=== PATIENT | male | born 1975 | race African-American/Black ===

== ENCOUNTER 2016-11-29 13:14 | Day surgery (SDC) | payer OTHER ==
[~2016-11-29] VITALS: Ht 195.6 cm; Wt 134.7 kg
[~2016-11-29 13:14] MED LIST: APRESOLINE100 MG PO; ASPIRIN81 M2 PO; CELLCEPT500 MG PO; COREG25 M1 PO; ERGOCALCIF50000 UNIT PO; FLOMAX0.4 MG PO; LASIX40 MG PO; LEVEMIR FL100 UNIT/1 SC; LIPITOR20 MG PO; METOPROLOL TART25 MG PO; NABI650T PO; NORVASC10 MG PO; NOVOLOG PE100 UNITS/ SC; PREDNISONE5 MG PO; PROGRAF1 MG PO; PROTONIX20 MG PO; RENVELA800 MG PO; TRAMADOL HCL50 MG PO; TYLENOL EXTRA500 MG PO; [UNRECOGNIZED DRUG - OTHER] PO
[2016-11-29 15:38] LABS: POINT-OF-CARE METER ID UU13113696
[2016-11-29 16:44] LABS: METH RESISTANT S AUREUS PCR NEGATIVE (NEGATIVE); PROBE CHECK PASS; SPECIMEN PROCESSING CONTROL PASS
== END 2016-11-29 17:52 | disposition home or self-care (01) ==
LOC: CATH 13:14
PROVIDERS: Surgery
PROC: 05CC0ZZ Extirpation of Matter from Left Basilic Vein, Open Approach (ICD-10-PCS; principal; 2016-11-29)
DX: T82.868A Thrombosis due to vascular prosthetic devices, implants and grafts, initial encounter (principal); Y83.2 Surgical operation with anastomosis, bypass or graft as the cause of abnormal reaction of the patient, or of later complication, without mention of misadventure at the time of the procedure; Z99.2 Dependence on renal dialysis; N18.6 End stage renal disease
CPT/HCPCS: 82948; 87641; C1725; C1757; C1769; C1874; C1894; C2628; J0690; J1644; J2250; J3010; S0020

== ENCOUNTER 2017-02-02 12:30 | Day surgery (SDC) | payer OTHER ==
[2017-02-02 13:58] LABS: POINT-OF-CARE METER ID UU13113696
[2017-02-02 14:54] LABS: METH RESISTANT S AUREUS PCR POSITIVE (NEGATIVE)
[2017-02-02 15:10] LABS: PROBE CHECK PASS
== END 2017-02-02 15:49 | disposition home or self-care (01) ==
LOC: CATH 12:30
PROVIDERS: Surgery
DX: T82.868A Thrombosis due to vascular prosthetic devices, implants and grafts, initial encounter (principal); Y83.2 Surgical operation with anastomosis, bypass or graft as the cause of abnormal reaction of the patient, or of later complication, without mention of misadventure at the time of the procedure; N18.6 End stage renal disease; Z99.2 Dependence on renal dialysis
CPT/HCPCS: 82948; 87641; C1725; C1757; C1769; C1874; C1894; C2628; J0690; J1644; J2250; J3010; S0020

== ENCOUNTER 2018-03-08 12:26 | Day surgery (SDC) | payer OTHER ==
[~2018-03-08] VITALS: Ht 195.6 cm; Wt 127.0 kg
[~2018-03-08 12:26] MED LIST changes: +COUMADIN2 MG PO; +COUMADIN5 MG PO; +NIFEDIPINE ER60 MG PO
== END 2018-03-08 15:06 | disposition home or self-care (01) ==
LOC: CATH 12:26
PROVIDERS: Surgery
DX: T82.868A Thrombosis due to vascular prosthetic devices, implants and grafts, initial encounter (principal); I13.0 Hypertensive heart and chronic kidney disease with heart failure and stage 1 through stage 4 chronic kidney disease, or unspecified chronic kidney disease; E11.22 Type 2 diabetes mellitus with diabetic chronic kidney disease; N18.6 End stage renal disease; Z99.2 Dependence on renal dialysis; Z86.73 Personal history of transient ischemic attack (TIA), and cerebral infarction without residual deficits; Y83.2 Surgical operation with anastomosis, bypass or graft as the cause of abnormal reaction of the patient, or of later complication, without mention of misadventure at the time of the procedure
CPT/HCPCS: 82948; 87641; C1725; C1757; C1769; C1887; C1894; C2628; J0690; J1644; J2250